=== PATIENT | male | born 1995 | race Caucasian/White ===

== ENCOUNTER 2018-08-07 17:02 | Emergency (ER) | payer BC ==
[~2018-08-07] VITALS: Ht 193 cm; Wt 88.5 kg
--- NOTE | 2018-08-07 18:05 | NUR ---
PT PRESENTED TO THE ER WITH A C/O PENILE PAIN. PT AMBULATED TO ER #16 WITH A STEADY GAIT.
--- NOTE | 2018-08-07 18:39 | NUR ---
PT IS AWAITING US.
--- NOTE | 2018-08-07 18:58 | NUR ---
US FINISHED AT THE BEDSIDE.
--- NOTE | 2018-08-07 19:44 | NUR ---
CALLING KLEBER RE: US READ.
[2018-08-07 20:27] VITALS: BP 128/65
--- NOTE | 2018-08-07 20:27 | NUR ---
Patient discharged to home in stable condition. Written and verbal after care instructions given. Patient verbalizes understanding of instruction AND RX. PT AMBULATED OUT WITH A STEADY GAIT. VSS.
== END 2018-08-07 20:28 | disposition home or self-care (01) ==
LOC: ER 17:02
DX: N48.89 Other specified disorders of penis (principal); F10.10 Alcohol abuse, uncomplicated; F17.200 Nicotine dependence, unspecified, uncomplicated; Q55.61 Curvature of penis (lateral); Y90.9 Presence of alcohol in blood, level not specified; Z60.2 Problems related to living alone
CPT/HCPCS: 93980-TC